=== PATIENT | female | born 1930 | race Caucasian/White ===

== ENCOUNTER 2016-11-03 19:03 | Inpatient (IN) | payer MEDICARE, OTHER ==
[~2016-11-03] VITALS: Ht 160 cm; Wt 61.0 kg
[~2016-11-03 19:03] MED LIST: CLOP75TA PO; OXYC5CAP4 PO; PRED5TAB19 PO
[2016-11-03] MEDS ORDERED: SODIUM CHLORIDE FLUSH 10ML SYR IVF ONE (20:00)
[2016-11-03] MEDS ORDERED: ACETAMINOPHEN 325 MG TABLET PO ONE (20:00)
[2016-11-03] MEDS ORDERED: SODIUM CHLORIDE 0.9% 1,000ML IVBOLUS ONE ×2 (20:00→21:00)
[2016-11-03 20:25] LABS: ASPARTATE AMINO TRANSFERASE 103 U/L (15-37); BLOOD UREA NITROGEN 11 mg/dL (7-18)
[2016-11-03] MEDS ORDERED: ACETAMINOPHEN 325 MG TABLET ONE (20:29)
[2016-11-03] MEDS ORDERED: AZITHROMYCIN 500 MG in SODIUM CHLORIDE 0.9% 250 ML IV ONE (21:00)
[2016-11-03] MEDS ORDERED: CEFTRIAXONE 1,000 MG in SODIUM CHLORIDE 0.9% 50 ML IV ONE (21:00)
[2016-11-03] MEDS ORDERED: CEFTRIAXONE PMX 1GM/50ML 50 ML ONE (21:11)
[2016-11-03] MEDS ORDERED: CARB15DR5 OP (21:45)
[2016-11-03] MEDS ORDERED: OXYcodone/APAP 5/325MG TABLET PO PRN (22:00)
[2016-11-03] MEDS: AZITHROMYCIN 500 MG in SODIUM CHLORIDE 0.9% 250 ML IV SCH (22:00)
[2016-11-03] MEDS ORDERED: ACETAMINOPHEN 325 MG TABLET PO PRN (22:00)
[2016-11-03] MEDS ORDERED: HYDROcodone/APAP 5/325 TABLET PO PRN (22:00)
[2016-11-03] MEDS ORDERED: ONDANSETRON 2MG/ML, 2ML ONE (22:30)
[2016-11-03] MEDS: ONDANSETRON 2MG/ML, 2ML IVPush PRN (22:35)
[2016-11-03] MEDS ORDERED: ONDANSETRON 2MG/ML, 2ML IVPush ONE (23:00)
[2016-11-04 00:54] VITALS: BP 110/62
[2016-11-04] MEDS: ENOXAPARIN 40 MG/0.4 ML SQ SCH (01:36)
[2016-11-04] MEDS: GUAIFENESIN 100 MG/5 ML, 10ML UDC PO SCH ×5 (01:37→20:43)
[2016-11-04 02:06] VITALS: BP 110/62
[2016-11-04 05:35] LABS: BLOOD UREA NITROGEN 12 mg/dL (7-18)
[2016-11-04] MEDS: CLOPIDOGREL 75 MG TABLET PO SCH (08:47)
[2016-11-04] MEDS: FAMOTIDINE 20 MG TABLET PO SCH ×2 (08:47→20:43)
[2016-11-04] MEDS: CEFTRIAXONE 1,000 MG in SODIUM CHLORIDE 0.9% 50 ML IV SCH ×2 (08:47→20:43)
[2016-11-04 09:05] VITALS: BP 103/64
[2016-11-04 15:50] VITALS: BP 117/67
[2016-11-04 19:53] VITALS: BP 127/72
[2016-11-04] MEDS: AZITHROMYCIN 500 MG in SODIUM CHLORIDE 0.9% 250 ML IV SCH (23:06)
[2016-11-05] MEDS: ENOXAPARIN 40 MG/0.4 ML SQ SCH (02:03)
[2016-11-05 02:13] VITALS: BP 138/72
[2016-11-05] MEDS: GUAIFENESIN 100 MG/5 ML, 10ML UDC PO SCH ×4 (05:28→21:57)
[2016-11-05 05:50] LABS: ASPARTATE AMINO TRANSFERASE 43 U/L (15-37); BLOOD UREA NITROGEN 12 mg/dL (7-18)
[2016-11-05 08:20] VITALS: BP 143/70
[2016-11-05] MEDS: FAMOTIDINE 20 MG TABLET PO SCH ×2 (09:41→21:57)
[2016-11-05] MEDS: CEFTRIAXONE 1,000 MG in SODIUM CHLORIDE 0.9% 50 ML IV SCH ×2 (09:41→21:56)
[2016-11-05] MEDS: CLOPIDOGREL 75 MG TABLET PO SCH (09:41)
[2016-11-05] MEDS: ONDANSETRON 2MG/ML, 2ML IVPush PRN (12:54)
[2016-11-05 15:10] VITALS: BP 179/72
[2016-11-05 15:53] VITALS: BP 167/76
[2016-11-05] MEDS ORDERED: hydrALAzine 20 MG/ML, 1ML IVPush PRN (16:00)
[2016-11-05 21:47] VITALS: BP 162/74
[2016-11-05] MEDS: AZITHROMYCIN 500 MG in SODIUM CHLORIDE 0.9% 250 ML IV SCH (22:53)
[2016-11-06 01:37] VITALS: BP_SYST 172; BP_SYST 180; BP_DIAS 73; BP_DIAS 81
[2016-11-06] MEDS: ENOXAPARIN 40 MG/0.4 ML SQ SCH (03:05)
[2016-11-06] MEDS: GUAIFENESIN 100 MG/5 ML, 10ML UDC PO SCH ×4 (06:45→21:48)
[2016-11-06 08:15] VITALS: BP 138/62
[2016-11-06] MEDS ORDERED: BISACODYL 10 MG SUPP PR SCH (08:30)
[2016-11-06] MEDS ORDERED: POLYETHYLENE GLYCOL 17 GM PACKET PO SCH (09:00)
[2016-11-06] MEDS: CEFDINIR 300 MG CAPSULE PO SCH ×2 (10:35→21:48)
[2016-11-06] MEDS: AZITHROMYCIN 250 MG TABLET PO SCH (10:35)
[2016-11-06] MEDS: FAMOTIDINE 20 MG TABLET PO SCH ×2 (10:35→21:48)
[2016-11-06] MEDS: CLOPIDOGREL 75 MG TABLET PO SCH (10:35)
[2016-11-06 13:55] VITALS: BP 137/63
[2016-11-06 19:06] VITALS: BP 146/61
[2016-11-07] MEDS: ENOXAPARIN 40 MG/0.4 ML SQ SCH (02:30)
[2016-11-07 02:40] VITALS: BP 167/74
[2016-11-07] MEDS: GUAIFENESIN 100 MG/5 ML, 10ML UDC PO SCH ×2 (05:54→11:00)
[2016-11-07 08:49] VITALS: BP 132/63
[2016-11-07] MEDS ORDERED: POLYETHYLENE GLYCOL 17 GM PACKET PO SCH (09:00)
[2016-11-07] MEDS ORDERED: GUAI-103 PO (09:27)
[2016-11-07] MEDS ORDERED: CEFD300C37 PO (09:27)
[2016-11-07] MEDS ORDERED: AZIT250T89 PO (09:27)
[2016-11-07] MEDS: CLOPIDOGREL 75 MG TABLET PO SCH (09:39)
[2016-11-07] MEDS: AZITHROMYCIN 250 MG TABLET PO SCH (09:39)
[2016-11-07] MEDS: CEFDINIR 300 MG CAPSULE PO SCH (09:39)
[2016-11-07] MEDS: FAMOTIDINE 20 MG TABLET PO SCH (09:40)
[2016-11-07 11:00] VITALS: BP 163/69
== END 2016-11-07 11:10 | disposition home or self-care (01) | DRG 193 ==
LOC: ED 21:24 → EDIP 21:29 → ED 21:54 → 4NOR 11-04 00:19
PROVIDERS: ADMIT Internal Medicine; ATTEND Internal Medicine
DX: J15.9 Unspecified bacterial pneumonia (principal); J96.01 Acute respiratory failure with hypoxia; G92 Toxic encephalopathy; E87.1 Hypo-osmolality and hyponatremia; J44.0 Chronic obstructive pulmonary disease with (acute) lower respiratory infection; N39.0 Urinary tract infection, site not specified; J98.11 Atelectasis; R82.71 Bacteriuria; R74.0 Nonspecific elevation of levels of transaminase and lactic acid dehydrogenase [LDH]; M34.1 CR(E)ST syndrome; R41.0 Disorientation, unspecified; I10 Essential (primary) hypertension; Z88.2 Allergy status to sulfonamides; Z88.1 Allergy status to other antibiotic agents; K59.00 Constipation, unspecified; Z79.52 Long term (current) use of systemic steroids
CPT/HCPCS: 36415; 71010; 80048; 80053; 81001; 83605; 84145; 84443; 85025; 87040; 87070; 87086; 87205; 93005; 96361; 96365; 96367; 96375; J0456; J0696; J1650; J2405; J7030; J7050; J7512